=== PATIENT | female | born 1960 | race Caucasian/White ===

== ENCOUNTER → 2020-07-13 11:17 | Outpatient (CLI) | payer OTHER, SELFPAY ==
[2020-07-13] MEDS: COVID-19 VACC #1, MRNA(MOD) 100 MCG/0.5 ML VIAL IM (11:25)
== END ==
PROVIDERS: Visit Provider Internal Medicine
DX: Z23 Encounter for immunization (principal)
CPT/HCPCS: 0011A; 91301

== ENCOUNTER → 2020-08-10 11:04 | Outpatient (CLI) | payer OTHER, SELFPAY ==
[2020-08-10] MEDS: COVID-19 VACC #2, MRNA(MOD) 100 MCG/0.5 ML VIAL IM (11:09)
== END ==
PROVIDERS: Visit Provider Internal Medicine
DX: Z23 Encounter for immunization (principal)
CPT/HCPCS: 0012A; 91301

== ENCOUNTER → 2022-03-25 09:19 | Outpatient (CLI) | payer OTHER, SELFPAY ==
--- NOTE | 2022-03-25 09:23 | DI.RAD.S_ITS ---
PROCEDURE: XR HAND LT MIN 3V INDICATIONS: Dog bite TECHNIQUE: 3 views of the hand(s) acquired. COMPARISON: None. FINDINGS: Bones: No fractures or dislocations. Carpal bones are normally aligned. No suspicious bony lesions. Soft tissues: No suspicious soft tissue calcifications. IMPRESSION: No fracture or radiopaque foreign body. Dictated by: Saad Akers M.D. on 03/25/2022 at 15:37 Approved by: Saad Akers M.D. on 03/25/2022 at 15:38
--- NOTE | 2022-03-25 09:23 | DI.RAD.S_ITS ---
PROCEDURE: XR HAND RT MIN 3V INDICATIONS: Dog bite TECHNIQUE: 3 views of the hand(s) acquired. COMPARISON: [facility], CR, XR HAND LT MIN 3V, 03/25/2022, 9:35. FINDINGS: Nondisplaced fracture of the right 1st distal phalanx oriented obliquely through the proximal metadiaphysis. Remaining bones intact. No radiopaque foreign body. IMPRESSION: Nondisplaced right 1st distal phalanx fracture. Dictated by: Saad Akers M.D. on 03/25/2022 at 15:38 Approved by: Saad Akers M.D. on 03/25/2022 at 15:42
== END ==
PROVIDERS: Referring Provider Nurse Practitioner Family; Visit Provider Nurse Practitioner Family
DX: S62.524A Nondisplaced fracture of distal phalanx of right thumb, initial encounter for closed fracture (principal); M79.645 Pain in left finger(s); M79.644 Pain in right finger(s); W54.0XXA Bitten by dog, initial encounter
CPT/HCPCS: 73130

== ENCOUNTER 2022-05-11 09:30 | Emergency (ER) | payer OTHER, SELFPAY ==
[2022-05-11 09:40] VITALS: BP 135/89; PULSE 98; RESP 14; TEMP 36.3; O2SAT 99
[2022-05-11 10:17] LABS: Add Manual Diff / Slide Review NO; Basophils Absolute Auto 0 /uL (0-100); Basophils Percent Auto 0.6 % (0-2); Eosinophils Absolute Auto 0 /uL (0-450); Eosinophils Percent Auto 0.3 % (2-4); Hematocrit 42.2 % (36-46); Hemoglobin 14.2 g/dL (12.0-16.0); Lymphocytes Absolute Auto 1200 /uL (1100-4500); Lymphocytes Percent Auto 22.1 % (25-40); Mean Corpuscular HGB Conc 33.7 % (30-36); Mean Corpuscular Volume 94.9 fL (80-100); Monocytes Absolute Auto 500 /uL (0-900); Monocytes Percent Auto 9.5 % (3-14); Neutrophils Absolute Auto 3500 /uL (1500-7000); Neutrophils Percent Auto 67.5 % (50-75); Platelet Count 175 X10^3/uL (150-400); Red Blood Cell Count 4.45 X10^6/uL (4.0-5.2); Red Cell Distribution Width 13.1 % (11.6-14.8); White Blood Cell Count 5.2 X10^3/uL (4.5-11.0)
[2022-05-11 10:25] LABS: Alanine Aminotransferase 23 IU/L (<35); Albumin 4.5 g/dL (3.5-5.0); Albumin Globulin Ratio 1.5 (1.0-2.8); Alkaline Phosphatase 74 U/L (38-126); Aspartate Aminotransferase 39 IU/L (14-36); BUN Creatinine Ratio 24.2 (6-22); Bilirubin Total 0.9 mg/dL (0.2-1.3); Blood Urea Nitrogen 16 mg/dL (7-17); Calcium 9.2 mg/dL (8.4-10.2); Carbon Dioxide 28 mmol/L (22-32); Chloride 98 mmol/L (98-107); Estimated Glomerular Filt Rate > 60 mL/min (>60); Globulin 3.1 g/dL (1.7-4.1); Glucose 114 mg/dL (80-110); Lipase 132 U/L (23-300); Potassium 3.7 mmol/L (3.4-5.1); Sodium 137 mmol/L (137-145); Total Protein 7.6 g/dL (6.3-8.2)
[2022-05-11 10:27] LABS: HEMOLYSIS 52 (0-50)
--- NOTE | 2022-05-11 10:31 | ED_ITS ---
HPI - Abdominal Pain General Chief Complaint: Abdominal Pain Stated Complaint: abd pain Time Seen by Provider: 05/11/22 10:01 Source: patient Mode of arrival: Ambulatory History of Present Illness HPI narrative: Patient is a 61-year-old healthy female who presents with right lower quadrant pain ongoing for the last 4 days. It has been off and on coming and going in waves. She is felt nauseous at times but still able to eat. She was able to walk without any difficulty. She denies any fever or chills. No night sweats or weight loss. No cough or chest pain or palpitations. Related Data Previous Rx's Medication Instructions Recorded hydrocodone 5 mg-acetaminophen 325 1 tab PO Q6H PRN pain #10 tabs 05/11/22 mg tablet ondansetron 4 mg disintegrating 4 mg PO Q8H PRN nausea and 05/11/22 tablet vomiting #10 tabs Allergies Allergy/AdvReac Type Severity Reaction Status Date / Time No Known Drug Allergies Allergy Verified 05/11/22 09:51 Review of Systems Review of Systems ROS Unobtainable: All systems reviewed & are unremarkable except as noted in HPI and below Patient History Social History Smoking Status: Never smoker Smoking Status: Never smoker alcohol intake frequency: 0-2 drinks per day Substance Use Type: does not use Exam Initial Vital Signs Initial Vital Signs: Vital Signs Temperature 97.4 F L 05/11/22 09:40 Pulse Rate 98 H 05/11/22 09:40 Respiratory Rate 14 05/11/22 09:40 Blood Pressure 135/89 05/11/22 09:40 Pulse Oximetry 99 05/11/22 09:40 Oxygen Delivery Method 05/11/22 09:40 GENERAL: Alert pleasant 61-year-old female and in no acute distress. HEENT: Head atraumatic,EOMI, pupils reactive, face symmetric, moist mucous membranes CARDIOVASCULAR: Regular rate and rhythm without murmurs, rubs or gallops. RESPIRATORY: Breath sounds equal bilaterally, no wheezes rales or rhonchi. ABDOMEN: Soft tender in right lower quadrant without guarding or rebound no distention : No CVA tenderness EXTREMITIES: Normal range of motion, no clubbing or edema. Neurovascularly intact NEUROLOGICAL: Alert and oriented x4.Normal gait and speech. SKIN: Warm, dry, no laceration, no petechiae, no rashes or lesions. Course Orders Ordered: ED Orders 05/11/22 10:37 CT abdomen pelvis w con Stat 05/11/22 12:23 US pelvic complete Stat 05/11/22 15:15 Alpha Fetoprotein Stat Discontinued Medications Ketorolac Tromethamine (Ketorolac 30 Mg/Ml Vial) 15 mg IV NOW ONE Stop: 05/11/22 14:18 Last Admin: 05/11/22 14:53 Dose: 15 mg Documented By: JOSE Ondansetron HCl (Ondansetron 4 Mg/2 Ml Inj) 4 mg IV NOW PRN PRN Reason: Nausea And Vomiting Vital Signs Vital signs: Vital Signs - 8 hr 05/11/22 14:57 05/11/22 14:59 05/11/22 14:59 Pulse Rate 93 H 68 Blood Pressure 136/79 Pulse Oximetry 100 100 05/11/22 15:00 Pulse Rate 62 Blood Pressure Pulse Oximetry 100 MDM - Abdominal Pain Lab Data 05/11/22 10:05 05/11/22 10:05 Labs: Lab Results 05/11/22 05/11/22 05/11/22 Range/Units 10:05 10:05 10:05 WBC 5.2 (4.5-11.0) X10^3/uL RBC 4.45 (4.0-5.2) X10^6/uL Hgb 14.2 (12.0-16.0) g/dL Hct 42.2 (36-46) % MCV 94.9 (80-100) fL MCH 32.0 (26-34) PG MCHC 33.7 (30-36) % RDW 13.1 (11.6-14.8) % Plt Count 175 (150-400) X10^3/uL Neut % (Auto) 67.5 (50-75) % Lymph % (Auto) 22.1 L (25-40) % [place] % (Auto) 9.5 (3-14) % Eos % (Auto) 0.3 L (2-4) % Baso % (Auto) 0.6 (0-2) % Neut # (Auto) 3500 (4076-3805) /uL Lymph # (Auto) 1200 (6789-1756) /uL [place] # (Auto) 500 (0-900) /uL Eos # (Auto) 0 (0-450) /uL Baso # (Auto) 0 (0-100) /uL Sodium 137 (137-145) mmol/L Potassium 3.7 (3.4-5.1) mmol/L Chloride 98 (98-107) mmol/L Carbon Dioxide 28 (22-32) mmol/L BUN 16 (7-17) mg/dL Creatinine 0.66 (0.52-1.04) mg/dL Estimated GFR > 60 (>60) mL/min BUN/Creatinine Ratio 24.2 H (6-22) Glucose 114 H (80-110) mg/dL Lactate (0.7-2.1) mmol/L Calcium 9.2 (8.4-10.2) mg/dL Total Bilirubin 0.9 (0.2-1.3) mg/dL AST 39 H (14-36) IU/L ALT 23 (<35) IU/L Alkaline Phosphatase 74 (38-126) U/L Lactate Dehydrogenase (120-246) U/L Total Protein 7.6 (6.3-8.2) g/dL Albumin 4.5 (3.5-5.0) g/dL Globulin 3.1 (1.7-4.1) g/dL Albumin/Globulin Ratio 1.5 (1.0-2.8) Lipase 132 (23-300) U/L Carcinoembryonic Ag (0.1-3.0) ng/mL CA 125 Antigen (0-35) U/mL SARS-CoV-2 (PCR) Negative (Negative) 05/11/22 05/11/22 Range/Units 10:05 10:05 WBC (4.5-11.0) X10^3/uL RBC (4.0-5.2) X10^6/uL Hgb (12.0-16.0) g/dL Hct (36-46) % MCV (80-100) fL MCH (26-34) PG MCHC (30-36) % RDW (11.6-14.8) % Plt Count (150-400) X10^3/uL Neut % (Auto) (50-75) % Lymph % (Auto) (25-40) % [place] % (Auto) (3-14) % Eos % (Auto) (2-4) % Baso % (Auto) (0-2) % Neut # (Auto) (5743-1236) /uL Lymph # (Auto) (6434-7359) /uL [place] # (Auto) (0-900) /uL Eos # (Auto) (0-450) /uL Baso # (Auto) (0-100) /uL Sodium (137-145) mmol/L Potassium (3.4-5.1) mmol/L Chloride (98-107) mmol/L Carbon Dioxide (22-32) mmol/L BUN (7-17) mg/dL Creatinine (0.52-1.04) mg/dL Estimated GFR (>60) mL/min BUN/Creatinine Ratio (6-22) Glucose (80-110) mg/dL Lactate 1.6 (0.7-2.1) mmol/L Calcium (8.4-10.2) mg/dL Total Bilirubin (0.2-1.3) mg/dL AST (14-36) IU/L ALT (<35) IU/L Alkaline Phosphatase (38-126) U/L Lactate Dehydrogenase 225 (120-246) U/L Total Protein (6.3-8.2) g/dL Albumin (3.5-5.0) g/dL Globulin (1.7-4.1) g/dL Albumin/Globulin Ratio (1.0-2.8) Lipase (23-300) U/L Carcinoembryonic Ag 10.2 H (0.1-3.0) ng/mL CA 125 Antigen 13.0 (0-35) U/mL SARS-CoV-2 (PCR) (Negative) Point of care testing: Urine Dip Bedside Urine Glucose Negative Bedside Urine Bilirubin - Negative Bedside Urine Ketone - Negative Urine Specific [place] 1.005 Bedside Urine Occult Blood - Negative Bedside Urine pH 8.5 Bedside Urine Protein - Negative Bedside Urine Urobilinogen - Negative Bedside Urine Nitrite - Negative Bedside Urine Leukocytes - Negative Esterase Imaging Data CT scan - abdomen/pelvis: Radiologist's Impression: ?Sera Stern MR#: [id number] : 1960 Acct:[id number] Age/Sex: 61 / F Date of Service: 05/11/22 Loc: ED Accession Number: [id number] ?? Procedure: CT abdomen pelvis w con Ordering Provider: Billie Lipscomb D.O. ADDENDUMThis report includes an Addendum and supersedes previous reports for this exam. ? ? ? PROCEDURE:? CT ABDOMEN PELVIS W CON ? INDICATIONS:? rlq pain ? TECHNIQUE:? After the administration of oral and IV contrast, axial sections were acquired from the lung bases to the pubic symphysis.? Coronal and sagittal reformats were performed.? For radiation dose reduction, the following was used:? automated exposure control, adjustment of mA and/or kV according to patient size. ? COMPARISON:? None. ? FINDINGS:? Image quality:? Excellent.? ? Lung bases:? Unremarkable.? ? Heart:? No significant findings. ? ? ABDOMEN: Liver:? Unremarkable.? ? Gallbladder:? Unremarkable.? ? Biliary ducts:? Unremarkable.? ? Pancreas:? Unremarkable.? ? Spleen:? Unremarkable.? ? Adrenal Glands:? Unremarkable.? ? Kidneys and Ureters:? Note is made that the right kidney is low lying.? The kidneys demonstrate normal size and enhance symmetrically.? There is no hydronephrosis.? ? Stomach and Bowel: In this patient with this given history, scrutiny is given to the appendix.? A normal appendix is partially seen, as on series 4, image 17 and on series 2, image 54. There is a moderate amount of stool seen within the colon.? New line no dilated loops of small bowel are seen. The stomach is relatively decompressed, which limits its evaluation. Peritoneum:? A moderate amount of simple ascites is seen in the right lower quadrant.? No free air is seen. ? Ventral Wall: ? No hernia.? Abdominal Nodes:? No retroperitoneal or mesenteric adenopathy by size criteria.? Vessels:? Aorta and inferior vena cava are normal in size.? ? PELVIS: Pelvic Organs:? Unremarkable.? ? Bladder:? Unremarkable.? ? Pelvic Nodes: No enlarged lymph nodes.? Miscellaneous: No inguinal hernias are seen. ? ? ? Bones:? Focal L2-L3 degenerative change is seen.? Milder degenerative changes are seen elsewhere.? ? ? IMPRESSION:? ? A normal appendix is partially seen. ? There is a moderate amount of simple appearing ascites seen within the right lower quadrant of the abdomen.? A cause of this localized fluid is not seen, however.? No rim enhancement is seen to suggest peritoneal abscess. ? There is a moderate amount of stool seen within the colon. Please correlate with an underlying history of constipation.? ? ? Additional findings:? Low lying right kidney ? Dictated by: Joshua Drake M.D. on 05/11/2022 at 10:19 ? ? Approved by: Joshua Drake M.D. on 05/11/2022 at 10:31 ? ? ? ADDENDUM: ? This patient has localized right lower quadrant fluid, which the does not have a clear explanation.? Differential diagnosis includes ruptured appendicitis. ? Close clinical follow-up is suggested.? If clinically appropriate, please consider a repeat CT, performed with IV and oral contrast. ? ? Note: Case discussed by telephone with Dr. Lipscomb at 10:55 a.m. [place] time on May 11, 2022.? Dictated by: Joshua Drkae M.D. on 05/11/2022 at 11:00 ? ? Approved by: Joshua Drake M.D. on 05/11/2022 at 11:02 ? Addendum Dictated By: Joshua Drake MD Addendum Signed By: Addendum Cosigned By: DD/ TD/TT: 05/11/22 PROCEDURE:? CT ABDOMEN PELVIS W CON ? INDICATIONS:? rlq pain ? TECHNIQUE:? After the administration of oral and IV contrast, axial sections were acquired from the lung bases to the pubic symphysis.? Coronal and sagittal reformats were performed.? For radiation dose reduction, the following was used:? automated exposure control, adjustment of mA and/or kV according to patient size. ? COMPARISON:? None. ? FINDINGS:? Image quality:? Excellent.? ? Lung bases:? Unremarkable.? ? Heart:? No significant findings. ? ? ABDOMEN: Liver:? Unremarkable.? ? Gallbladder:? Unremarkable.? ? Biliary ducts:? Unremarkable.? ? Pancreas:? Unremarkable.? ? Spleen:? Unremarkable.? ? Adrenal Glands:? Unremarkable.? ? Kidneys and Ureters:? Note is made that the right kidney is low lying.? The kidneys demonstrate normal size and enhance symmetrically.? There is no hydronephrosis.? ? Stomach and Bowel: In this patient with this given history, scrutiny is given to the appendix.? A normal appendix is partially seen, as on series 4, image 17 and on series 2, image 54. There is a moderate amount of stool seen within the colon.? New line no dilated loops of small bowel are seen. The stomach is relatively decompressed, which limits its evaluation. Peritoneum:? A moderate amount of simple ascites is seen in the right lower quadrant.? No free air is seen. ? Ventral Wall: ? No hernia.? Abdominal Nodes:? No retroperitoneal or mesenteric adenopathy by size criteria.? Vessels:? Aorta and inferior vena cava are normal in size.? ? PELVIS: Pelvic Organs:? Unremarkable.? ? Bladder:? Unremarkable.? ? Pelvic Nodes: No enlarged lymph nodes.? Miscellaneous: No inguinal hernias are seen. ? ? ? Bones:? Focal L2-L3 degenerative change is seen.? Milder degenerative changes are seen elsewhere.? ? ? IMPRESSION:? ? A normal appendix is partially seen. ? There is a moderate amount of simple appearing ascites seen within the right lower quadrant of the abdomen.? A cause of this localized fluid is not seen, however.? No rim enhancement is seen to suggest peritoneal abscess. ? There is a moderate amount of stool seen within the colon. Please correlate with an underlying history of constipation.? ? ? Additional findings:? Low lying right kidney ? Dictated by: Joshua Drake M.D. on 05/11/2022 at 10:19 ? ? Approved by: Joshua Drake M.D. on 05/11/2022 at 10: US - RUG INSPECTOR HELPER: Radiologist's Impression: Signed Patient: Sera Stern MR#: [id number] : 1960 Acct:[id number] Age/Sex: 61 / F Date of Service: 05/11/22 Loc: ED Accession Number: [id number] ?? Procedure: US pelvic complete Ordering Provider: Billie Lipscomb D.O. PROCEDURE:? US PELVIC COMPLETE ? INDICATIONS:? RIGHT PELVIC FREE FLUID ON CT ? TECHNIQUE:? Real-time scanning was performed of the pelvic organs, with image documentation.? Additional endovaginal scanning was necessary due to incomplete visualization of the adnexal and endometrial structures by transabdominal scanning.? ? COMPARISON:? [facility], CT, CT ABDOMEN PELVIS W CON, 05/11/2022, 10:56. ? FINDINGS:? ?? Uterus:? Uterus is anteverted and normal in size at 5.2 x 2.4 x 4.3 cm. The myom etrium is homogeneous. ? The endometrium measures 2 mm combined thickness.? There is a 1 x 0.4 x 1 cm heterogeneous solid mass seen along the endometrial stripe, with minimal internal vascularity seen. ? Ovaries:? The right ovary measures 3.8 x 2.8 x 4.4 cm, with a calculated ovarian volume of 24.2 cc.? Within the right ovary, there are 3 simple appearing cysts seen, with the largest measuring up to 3.4 cm. Normal appearing arterial waveforms are confirmed to the right ovary.? ? The left ovary measures 0.7 x 1.6 x 0.9 cm, with a calculated ovarian volume of 0.5 cc. ? Less than 12 follicles can be seen in each ovary.? No adnexal masses are seen. ? Other:? There is a moderate amount of free seen, with low level echoes, it both inferior and superior to the right ovary. ? ? IMPRESSION:? Moderate free fluid can be seen within the right lower quadrant, with low level echoes, which may be related to blood. ? The right ovary demonstrates several cysts, including a 3.4 cm cyst.? Although no suspicious features are seen, please consider ovarian neoplasm in this postmenopausal patient. ? Negative for right ovarian torsion. ? Along the endometrial stripe, there is a new finding of a 1 cm likely polyp seen.? Please consider hysteroscopy versus sonohysterogram for further evaluation. ? ? We strive to produce accurate, complete, and clear reports of imaging services. To assist us in improving patient care, this report was composed using standard report templates and voice recognition software. Therefore, it may contain abnormal punctuation, insertions and/or omissions. Occasional wrong-word or sound-alike substitutions may occur. Though we review the report and make efforts to correct it, we do recommend that the report be read carefully in proper context to recognize any text inaccur acies. ? ? Dictated by: Joshua Drake M.D. on 05/11/2022 at 12:30 ? ? ECG Data Interpretation: Normal sinus rhythm rate 75 IA interval 108 QRS [address] changes or T- wave inversions MDM Narrative Medical decision making narrative: Patient is a healthy 61-year-old female who presents with right lower quadrant pain ongoing for the last 3-4 days waxing and waning. Blood work is overall reassuring without leukocytosis or lactic acidosis. CT does show right lower quadrant fluid without obvious appendicitis rupture of appendicitis although that can not be excluded and no masses. Pelvic ultrasound does show several ovarian cysts, possible neoplasm. I did discuss with Dr. Garcia in regards to CT findings and ultrasound findings. At this time there is nothing surgical. Dr. Frias environmental restoration planner updated patient's symptoms test results recommend tumor markers and follow-up as an outpatient next week. Patient and updated patient's test results in concern for cancer. She does not have a PCP. Expect to hear call back from Dr. Frias's office. Discharge Plan Departure Patient Disposition: Home Clinical Impression: Ovarian cyst Instructions: DI for Ovarian Cancer, DI for Ovarian Cyst Activity Restrictions/Additional Instructions: *You have been diagnosed with pelvic fluid, possible ovarian cyst versus ovarian cancer *What to do: At this time you need further workup concern is for ovarian cancer. Dr. Frias OBGYN has been consulted his office should call you on Friday schedule follow-up appointment. *Continue to take medications as directed Ibuprofen 600 mg every 6 hours if needed for [id number] Tylenol 650 mg every 4-6 hours if needed for [id number] pain [place] 1 tablet every 6 hours or at nighttime if needed for severe pain--> SENT TO [facility] *Follow up with your primary care provider in 2-3 days or call [phone] Dr. Frias contact information below *Return to ER if you should have increasing pain despite pain medication, nausea vomiting fever or any new, worsening or concerning symptoms CONTROLLED SUBSTANCE DISCHARGE (Narcotoic/benzodiazepine/Flexeril/Phenergan) 1. You have been prescribed narcotic medications, it does have acetaminophen/Tylenol/paracetamol in it, DO NOT TAKE MORE THAN 4,00mg in 24 hours of Tylenol. TRAMADOL DOES NOT CONTAIN TYLENOL 2. Please understand that we cannot provide further refills of narcotics, benzodiazepines or controlled substances through the ED and her pain management will need to be through your provider. 3. While on these medications you cannot drive or operate heavy machinery. 4. You cannot sign legal documents or perform any duties such as this. 5. As long as you're taking opiate pain medications he should also be taking a stool softener such as Colace, Dulcolax, MiraLAX or prune juice, to help avoid constipation. Prescriptions: New hydrocodone-acetaminophen 5-325 mg tablet 1 tab PO Q6H PRN (Reason: pain) Qty: 10 0RF ondansetron 4 mg tablet,disintegrating 4 mg PO Q8H PRN (Reason: nausea and vomiting) Qty: 10 0RF Referrals: Miscellaneous,Doctor, [Primary Care Provider] - Levar Frias MD [Physician] - Stand Alone Forms: Patient Portal/API
--- NOTE | 2022-05-11 10:37 | DI.CT.S_ITS ---
PROCEDURE: CT ABDOMEN PELVIS W CON INDICATIONS: rlq pain TECHNIQUE: After the administration of oral and IV contrast, axial sections were acquired from the lung bases to the pubic symphysis. Coronal and sagittal reformats were performed. For radiation dose reduction, the following was used: automated exposure control, adjustment of mA and/or kV according to patient size. COMPARISON: None. FINDINGS: Image quality: Excellent. Lung bases: Unremarkable. Heart: No significant findings. ABDOMEN: Liver: Unremarkable. Gallbladder: Unremarkable. Biliary ducts: Unremarkable. Pancreas: Unremarkable. Spleen: Unremarkable. Adrenal Glands: Unremarkable. Kidneys and Ureters: Note is made that the right kidney is low lying. The kidneys demonstrate normal size and enhance symmetrically. There is no hydronephrosis. Stomach and Bowel: In this patient with this given history, scrutiny is given to the appendix. A normal appendix is partially seen, as on series 4, image 17 and on series 2, image 54. There is a moderate amount of stool seen within the colon. New line no dilated loops of small bowel are seen. The stomach is relatively decompressed, which limits its evaluation. Peritoneum: A moderate amount of simple ascites is seen in the right lower quadrant. No free air is seen. Ventral Wall: No hernia. Abdominal Nodes: No retroperitoneal or mesenteric adenopathy by size criteria. Vessels: Aorta and inferior vena cava are normal in size. PELVIS: Pelvic Organs: Unremarkable. Bladder: Unremarkable. Pelvic Nodes: No enlarged lymph nodes. Miscellaneous: No inguinal hernias are seen. Bones: Focal L2-L3 degenerative change is seen. Milder degenerative changes are seen elsewhere. IMPRESSION: A normal appendix is partially seen. There is a moderate amount of simple appearing ascites seen within the right lower quadrant of the abdomen. A cause of this localized fluid is not seen, however. No rim enhancement is seen to suggest peritoneal abscess. There is a moderate amount of stool seen within the colon. Please correlate with an underlying history of constipation. Additional findings: Low lying right kidney Dictated by: Joshua Drake M.D. on 05/11/2022 at 10:19 Approved by: Joshua Drake M.D. on 05/11/2022 at 10:31
[2022-05-11 10:51] LABS: COVID19 -Nasal RAPID Negative (Negative)
[2022-05-11 12:15] LABS: Lactate (Lactic Acid) 1.6 mmol/L (0.7-2.1)
--- NOTE | 2022-05-11 12:23 | DI.US.S_ITS ---
PROCEDURE: US PELVIC COMPLETE INDICATIONS: RIGHT PELVIC FREE FLUID ON CT TECHNIQUE: Real-time scanning was performed of the pelvic organs, with image documentation. Additional endovaginal scanning was necessary due to incomplete visualization of the adnexal and endometrial structures by transabdominal scanning. COMPARISON: [facility], CT, CT ABDOMEN PELVIS W CON, 05/11/2022, 10:56. FINDINGS: Uterus: Uterus is anteverted and normal in size at 5.2 x 2.4 x 4.3 cm. The myometrium is homogeneous. The endometrium measures 2 mm combined thickness. There is a 1 x 0.4 x 1 cm heterogeneous solid mass seen along the endometrial stripe, with minimal internal vascularity seen. Ovaries: The right ovary measures 3.8 x 2.8 x 4.4 cm, with a calculated ovarian volume of 24.2 cc. Within the right ovary, there are 3 simple appearing cysts seen, with the largest measuring up to 3.4 cm. Normal appearing arterial waveforms are confirmed to the right ovary. The left ovary measures 0.7 x 1.6 x 0.9 cm, with a calculated ovarian volume of 0.5 cc. Less than 12 follicles can be seen in each ovary. No adnexal masses are seen. Other: There is a moderate amount of free seen, with low level echoes, it both inferior and superior to the right ovary. IMPRESSION: Moderate free fluid can be seen within the right lower quadrant, with low level echoes, which may be related to blood. The right ovary demonstrates several cysts, including a 3.4 cm cyst. Although no suspicious features are seen, please consider ovarian neoplasm in this postmenopausal patient. Negative for right ovarian torsion. Along the endometrial stripe, there is a new finding of a 1 cm likely polyp seen. Please consider hysteroscopy versus sonohysterogram for further evaluation. We strive to produce accurate, complete, and clear reports of imaging services. To assist us in improving patient care, this report was composed using standard report templates and voice recognition software. Therefore, it may contain abnormal punctuation, insertions and/or omissions. Occasional wrong-word or sound-alike substitutions may occur. Though we review the report and make efforts to correct it, we do recommend that the report be read carefully in proper context to recognize any text inaccuracies. Dictated by: Joshua Drake M.D. on 05/11/2022 at 12:30 Approved by: Joshua Drake M.D. on 05/11/2022 at 12:34
[2022-05-11] MEDS: KETOROLAC 30 MG/ML VIAL 15 MG IV (14:53)
[2022-05-11 14:55] LABS: Lactate Dehydrogenase 225 U/L (120-246)
[2022-05-11 14:57] VITALS: PULSE 93; O2SAT 100
[2022-05-11 14:59] VITALS: BP 136/79; PULSE 68; O2SAT 100
[2022-05-11 15:00] VITALS: PULSE 62; O2SAT 100
[2022-05-11 15:27] LABS: Carcinoembryonic Antigen 10.2 ng/mL (0.1-3.0)
[2022-05-13 12:03] LABS: Alpha Fetoprotein 2.4 ng/mL (0.0-9.2)
[2022-05-15 11:43] LABS: Human Epididymis Prot 4 56.9 pmol/L (0.0-96.5)
[2022-05-15 12:29] LABS: Inhibin B <7.0 pg/mL (0.0-16.9)
== END 2022-05-11 15:22 | disposition home or self-care (01) ==
PROVIDERS: Emergency Provider Emergency Medicine
DX: N83.201 Unspecified ovarian cyst, right side (principal); Z20.822 Contact with and (suspected) exposure to COVID-19
CPT/HCPCS: 36415; 74177; 76830; 76856; 80053; 81003; 82105; 82378; 83520; 83605; 83615; 83690; 85025; 86304; 86305; 87635; 93005; 93976; 96374; 99284; C9803; J1885; Q9967

== ENCOUNTER 2022-08-01 11:51 | Day surgery (SDC) | payer OTHER, SELFPAY ==
[2022-08-01] VITALS (8 sets, daily range): BP systolic 104–146; BP diastolic 68–89; PULSE 54–64; RESP 12–16; TEMP 36.2–36.6; O2SAT 99–100; BMI 18.5
--- NOTE | 2022-08-01 | PATH_ITS ---
[facility] Accession Number: [id number] No. of containers..03 Tissue . 01 Material submitted: . PART A: ovary - RIGHT OVARY AND FALLOPIAN TUBE AND PARAOVARIAN CYST PART B: fallopian tube - LEFT FALLOPIAN TUBE PART C: endometrium - ENDOMETRIAL POLYP . 01 Diagnosis: A. Right Fallopian Tube and Ovary, Salpingo-oophorectomy: Fimbriated fallopian tube with benign paratubal cyst. Ovary with postmenopausal changes. Negative for neoplasia. . B. Left Fallopian Tube, Salpingectomy: Fimbriated fallopian tube without significant pathologic abnormality. Negative for neoplasia. . C. Endometrium, Biopsy: Polypoid atrophic endometrium with thermal artifact. Negative for neoplasia. [facility] 08/07/2022 1452 Local . 01 Electronically signed: . Geni Santos MD, Pathologist NPI- [id number] . 01 Gross description: . A. Received in formalin, labeled with the patient's name, , and right ovary, fallopian tube, and paraovarian cyst, and consists of a fimbriated fallopian tube measuring 7.2 cm in length by 1.0 cm in diameter with congested smooth serosa and is significant for a large, thin, smooth-walled cystic structure near the fimbriated end measuring 3.3 x 3.1 x 2.8 cm and is inked blue. Sectioning reveals a cyst containing clear serous fluid and has thin, smooth hernández with no excrescences identified. The fallopian tube has an unremarkable stellate lumen. The attached ovary is yellow and cerebriform, weighing 1 g and measuring 1.9 x 1.2 x 0.7 cm. Sectioning reveals an unremarkable, physiologic cut surface with no lesions or cysts identified. [employer] sections are submitted as follows: A1: Fallopian tube to include one-half of bisected fimbriae and cross sections. A2: [employer] Operator paratubal cyst. A3: [employer] System Operator ovary. B. Received in formalin, labeled with the patient's name, , and left fallopian tube, and consists of a fimbriated fallopian tube measuring 5.1 cm in length by 0.5 cm in diameter with thornton, smooth serosa and no cystic structures identified. Sectioning reveals an unremarkable stellate lumen. Page Make[employer] System Operator sections to include one-half of the bisected fimbriae and cross sections are submitted in cassette B1. C. Received in formalin, labeled with the patient's name, , and endometrial polyp, and consists of two thornton soft tissue fragments measuring 0.2 x 0.2 x 0.1 cm and 0.5 x 0.3 x 0.2 cm. The specimen is filtered into a biopsy bag and submitted intact in cassette C1. ([id number]) /[facility] 08/03/2022 1301 Local . 01 Pathologist provided ICD-10: N83.8 . 01 CPT . 590241, 594283, 088128 Specimen Comment: A courtesy copy of this report has been sent to [phone] Performed at: 01 [facility] [address] [place] [address], [place], [place] [id number] MD Rosendo Hope MD Phone: [phone]
--- NOTE | 2022-08-01 11:00 | SUR.OPER ---
Lithotomy on padded OR bed. [place] Pad Positioner under torso. Head on pillow, arms padded and tucked at sides. Legs secured in padded yellow fins stirrups.
[2022-08-01] MEDS: LACTATED RINGERS 1,000 ML 100 ML IV ×3 (12:23→15:15)
--- NOTE | 2022-08-01 13:32 | PM.PREOP ---
Pre-operative Note COVID-19 COVID-19 status: Not tested Criteria for continued procedure: Non-surgical alternatives not available or appropriate per current SOC Interval Note History & Physical reviewed/Exam performed by Physician: Yes Changes to H&P: No
--- NOTE | 2022-08-01 14:26 | SUR.OPER ---
Lithotomy on padded OR bed, head on pillow, arms secured on padded arm boards at <90 degrees abduction. Legs secured in padded yellow fins stirrups.
[2022-08-01] MEDS: BUPIVACAINE 0.5% (PF) 30 ML, EPINEPHrine 0.15 MG INJ (14:31)
--- NOTE | 2022-08-01 15:48 | PM.GYNOP.1 ---
Operative Date/Time/Diagnoses Date of procedure: 08/01/22 Time of procedure: 15:48 Pre-op diagnosis: Right lower quadrant pain Right ovarian cyst Endometrial mass Post-op diagnosis: same Procedure & Clinicians Procedure: Procedures Operation Date: 08/01/22 13:30 Actual Procedure Side Surgeon p Laparoscopic Right Salpingo-oophorectomywith left salpinectomy, Levar Frias MD s Hysteroscopy w/ resection of endometrial polyp Levar Frias MD Surgeon: Levar Frias Anesthesia Type: General Operative Notes Findings: Both ovaries appear normal. There is a paraovarian cyst adjacent to the right ovary but no other abnormalities are noted in the pelvis. The appendix is retrocecal and only partially visualized. The liver edge is normal and the gallbladder is not visualized. The endometrial cavity is unremarkable aside from a small endometrial polyp arising immediately superior to the internal cervical os on the posterior surface of the lower uterine segment. The endometrium is bland and unremarkable without localized abnormality. Specimen(s): endometrial polyp, left tube and right tube & ovary Estimated blood loss (mL): 10 Blood products transfused: none Procedure in detail: With the patient under satisfactory general anesthesia in the modified dorsal lithotomy position, the patient was prepped and draped for hysteroscopy/llaparoscopy. The umbilicus was infiltrated with 0.5% Marcaine with epinephrine and a 2 cm vertical umbilical incision was made. The anterior fascia was then incised transversely after grasping with Kaushal clamps. Stay sutures of 0 Vicryl replaced at each angle. The rectus abdominal were divided and entry into peritoneal cavity was accomplished with blunt dissection. The Gay cannula was then placed and stay sutures used to secured in place. The abdomen was insufflated with carbon dioxide and the at abdominal viscera visualized laparoscopically. A 2nd and 3rd laparoscopic ports using 5 mm bladeless trocars w/ sleeves were placed after infiltration of the skin and subcutaneous tissues w/ 0.5% lidocaine with epinephrine. Using a 3 puncture technique, the abdomen and pelvis were thoroughly examined and photographically documented. A grasping forceps was used to elevate the distal tube on the right side and the infundibulopelvic ligament was coagulated and divided with a power Seal bipolar device. The dissection was then carried along the mesosalpinx to the cornua where the proximal tube was transected with the power Seal device. Attention was then turned to the left adnexa and the left ovary was seen to be completely normal therefore was left in-situ per patient request. The distal tube was grasped and elevated. A variceal device was then used to coagulate and divide the fimbria of Zoey and the dissection was carried across the mesosalpinx to the cornua where the proximal tube was amputated. An Endo-Catch was used to deliver the right adnexa and left fallopian tube into the umbilical incision and the specimen easily removed through that port. The pelvis was reinspected and again photographically documented. A pneumoperitoneum was then vented and the laparoscopic incisions were closed with 4-0 Monocryl on the skin and 0 Vicryl interrupted on the fascia of the umbilical incision. Skin glue was applied and appropriate dressings placed. Attention was then turned to the hysteroscopic portion of the case. A small Rand speculum was placed in the vagina and the cervix easily visualized. The anterior lip of the cervix was then grasped with a single-tooth tenaculum and the endocervical canal dilated to 7 mm. A hysteroscope using sterile saline as distention meeting was placed through the endocervical canal into the endometrial cavity with the findings as noted previously. The hysteroscope was replaced with the resectoscope and using sorbitol as a distention medium, the polyp on the posterior aspect of the lower uterine segment was resected with small fragments obtained and submitted as pathologic specimens. Because the endometrium was completely bland and the endometrial cavity visibly normal, no curettage was felt to be warranted. The single-tooth tenaculum was then removed from the anterior lip of the cervix and there was no significant bleeding noted. Speculum was then removed from the vagina and the operation terminated by awakening the patient and transfer to the PACU after tolerating the procedure well. Complications: none Post-operative Condition: stable Disposition: PACU Plan for aftercare: Routine postoperative care.
[2022-08-01] MEDS: HYDROCODONE/ACET 5/325 TABLET 1 TAB PO (16:19)
== END 2022-08-01 16:54 | disposition home or self-care (01) ==
PROVIDERS: PCP Registered Nurse; Referring Provider Obstetrics & Gynecology; Visit Provider Obstetrics & Gynecology
PROC: (CPT 58661; principal; 2022-08-01 13:30)
PROC: 0UDB8ZZ Extraction of Endometrium, Via Natural or Artificial Opening Endoscopic (ICD-10-PCS; CPT 58558; 2022-08-01 13:30)
DX: R10.31 Right lower quadrant pain (principal); N83.201 Unspecified ovarian cyst, right side; N83.8 Other noninflammatory disorders of ovary, fallopian tube and broad ligament; N84.0 Polyp of corpus uteri
CPT/HCPCS: 58661; 58558; J0171; J1100; J1885; J2250; J2405; J2704; J3010

== ENCOUNTER 2023-03-26 09:38 | Observation (INO) | payer OTHER, SELFPAY ==
[2023-03-26] VITALS (17 sets, daily range): BP systolic 101–185; BP diastolic 63–91; PULSE 65–81; RESP 15–18; TEMP 37.2; O2SAT 94–100; BMI 19.0
[2023-03-26 10:14] LABS: Add Manual Diff / Slide Review NO; Basophils Absolute Auto 0 /uL (0-100); Basophils Percent Auto 0.4 % (0-2); Eosinophils Absolute Auto 0 /uL (0-450); Eosinophils Percent Auto 0.2 % (2-4); Hematocrit 40.7 % (36-46); Hemoglobin 13.8 g/dL (12.0-16.0); Lymphocytes Absolute Auto 1000 /uL (1100-4500); Lymphocytes Percent Auto 11.5 % (25-40); Mean Corpuscular HGB Conc 33.9 % (30-36); Mean Corpuscular Hemoglobin 32.3 PG (26-34); Mean Corpuscular Volume 95.4 fL (80-100); Monocytes Absolute Auto 700 /uL (0-900); Monocytes Percent Auto 7.9 % (3-14); Neutrophils Absolute Auto 6800 /uL (1500-7000); Platelet Count 193 X10^3/uL (150-400); Red Blood Cell Count 4.27 X10^6/uL (4.0-5.2); Red Cell Distribution Width 12.6 % (11.6-14.8); White Blood Cell Count 8.6 X10^3/uL (4.5-11.0)
[2023-03-26 10:16] LABS: Alanine Aminotransferase 27 IU/L (<35); Albumin 4.5 g/dL (3.5-5.0); Albumin Globulin Ratio 1.3 (1.0-2.8); Alkaline Phosphatase 80 U/L (38-126); Aspartate Aminotransferase 44 IU/L (14-36); BUN Creatinine Ratio 21.3 (6-22); Bilirubin Total 0.8 mg/dL (0.2-1.3); Blood Urea Nitrogen 13 mg/dL (7-17); Calcium 9.7 mg/dL (8.4-10.2); Carbon Dioxide 26 mmol/L (22-32); Chloride 101 mmol/L (98-107); Estimated Glomerular Filt Rate > 60 mL/min (>60); Globulin 3.5 g/dL (1.7-4.1); Glucose 117 mg/dL (80-110); HEMOLYSIS < 15 (0-50); Lipase 133 U/L (23-300); Potassium 3.7 mmol/L (3.4-5.1); Sodium 134 mmol/L (137-145)
[2023-03-26 10:22] LABS: Mucus Urine 1+ (Negative); RBC Urine 0-1/HPF (0-5/HPF); Squamous Epithelial Cell Urine 0-1 /HPF (0-5/HPF); WBC Urine None Seen (0-5/HPF)
[2023-03-26 10:23] LABS: Bacteria Urine Occasional (0-1); Culture Indicated Urine Specimen Cultured
--- NOTE | 2023-03-26 17:20 | ED_ITS ---
HPI - General Adult <Rona Gandhi MD - Last Filed: 03/30/23 01:05> General Chief complaint: Abdominal Pain Stated complaint: pain in lower right abd t-2 Time Seen by Provider: 03/26/23 13:46 Source: patient Mode of arrival: Ambulatory History of Present Illness HPI narrative: 62-year-old woman presents with 48 hours of right lower quadrant pain that was significant enough that she had difficulty sleeping all night. She describes it as starting in the mid abdomen and eventually localizing to the right lower quadrant. She is had an extended wait in the emergency department and notes that over the day today the pain has lessened. She describes it as a 9/10 early this morning and is down to a 3 to 4/10 not requiring pain medications at this time. She had similar pain back in April of this year was found to have an ovarian cyst with concerns for ovarian cancer. The right ovary ribs removed she was found to be cancer free. Her CEA was elevated the time she is since had a colonoscopy and upper endoscopy with no evidence of neoplastic abnormality. She does still have her left ovary in place. She notes no vaginal discharge. She is been nauseated but not vomiting. Feels that her stools are normal and notes that she typically has fairly loose stools due to the large volume of fiber that she eats on a regular basis. She is had no chest pain, fevers, cough, dyspnea, palpitations, headaches Related Data Previous Rx's Medication Instructions Recorded oxycodone 5 mg tablet 5 mg PO Q6H PRN pain #10 tabs 03/28/23 Allergies Allergy/AdvReac Type Severity Reaction Status Date / Time No Known Drug Allergies Allergy Verified 03/26/23 09:54 Review of Systems <Rona Gandhi MD - Last Filed: 03/30/23 01:05> Review of Systems Narrative: Pertinent positive and negative findings as per HPI Patient History <Rona Gandhi MD - Last Filed: 03/30/23 01:05> Medical History Hypertension Surgical History History of right oophorectomy Family History Father History of heart disease Circulatory disease Mother Neurologic disorder Grandfather History of heart disease Grandmother Stroke Grandfather Cancer Grandmother Cancer Social History household members: none Smoking Status: Never smoker alcohol intake: never Smoking Status: Never smoker alcohol intake frequency: holidays/special occasions only Substance Use Type: does not use Exam <Rona Gandhi MD - Last Filed: 03/30/23 01:05> Initial Vital Signs Initial Vital Signs: Vital Signs Temperature 98.9 F 03/26/23 09:40 Pulse Rate 78 03/26/23 09:40 Respiratory Rate 15 03/26/23 09:40 Blood Pressure 185/91 H 03/26/23 09:40 Pulse Oximetry 99 03/26/23 09:40 Oxygen Delivery Method Room Air 03/26/23 09:40 General: Healthy appearing, in no acute distress. Able to give a complete and coherent history. Well-nourished well-developed HEENT: Moist mucous membranes, normal sclera with reactive pupils, Respiratory: Lungs are clear to auscultation, no wheezing no rales no rhonchi. Full and symmetrical air movement Cardiac: Regular rate and rhythm no murmurs no bruits Abdomen: Soft, she is difficulty going from sitting to standing and when she is walking she is more comfortable hunched forward with a shuffling gait. She has mild right lower quadrant tenderness without rebound or guarding and no flank pain. Skin: Warm and dry, no rashes Neurologic: Grossly neurologically intact with no obvious asymmetries or abnormalities Extremities: No trauma, well perfused Psych: Cooperative, appropriate insight and affect <French Brizuela DO - Last Filed: 03/27/23 00:13> Initial Vital Signs Initial Vital Signs: Vital Signs Temperature 98.9 F 03/26/23 09:40 Pulse Rate 78 03/26/23 09:40 Respiratory Rate 15 03/26/23 09:40 Blood Pressure 185/91 H 03/26/23 09:40 Pulse Oximetry 99 03/26/23 09:40 Oxygen Delivery Method Room Air 03/26/23 09:40 Course <Rona Gandhi MD - Last Filed: 03/30/23 01:05> Orders Ordered: Discontinued Medications Acetaminophen (Acetaminophen 325 Mg Tablet) 975 mg PO NOW ONE Stop: 03/27/23 16:44 Last Admin: 03/27/23 18:41 Dose: Not Given Documented By: ARPIT Hydrocodone Bitart/Acetaminophen (Hydrocodone/Acet 5/325 Tablet) 1 tab PO Q4HR PRN PRN Reason: Pain, Moderate (4-6) Celecoxib (Celecoxib 200 Mg Capsule) 200 mg PO BID [facility] Last Admin: 03/28/23 08:34 Dose: Not Given Documented By: Admin: 03/27/23 20:36 Dose: 200 mg Documented By: Bupivacaine HCl 30 ml/ (Epinephrine HCl 0.15 mg) 0 ml INJ NOW ONE Stop: 03/27/23 17:09 Last Admin: 03/27/23 17:08 Dose: 20 ml Documented By: ZENA Hydromorphone HCl (Hydromorphone 1 Mg Inj) 0 mg IV Q5MIN PRN PRN Reason: Pain, Mild (1-3) Hydromorphone HCl (Hydromorphone 1 Mg Inj) 0 mg IV Q5MIN PRN PRN Reason: Pain, Moderate (4-6) Piperacillin Sod/Tazobactam (Sod 3.375 gm/ Sodium Chloride) 100 mls @ 25 mls/hr IV Q8H [facility] Last Admin: 03/27/23 12:40 Dose: 25 mls/hr Documented By: Infusion: 03/27/23 09:30 Dose: Infused Documented By: Admin: 03/27/23 04:37 Dose: 25 mls/hr Documented By: Infusion: 03/27/23 00:51 Dose: Infused Documented By: Infusion: 03/26/23 21:07 Dose: 25 mls/hr Documented By: DKShailesh Admin: 03/26/23 20:50 Dose: 25 mls/hr Documented By: DKShailesh Sodium Chloride (Normal Saline 0.9%) 1,000 mls @ 100 mls/hr IV CONT [facility] Last Infusion: 03/27/23 18:32 Dose: 100 mls/hr Documented By: Infusion: 03/27/23 15:45 Dose: 0 mls/hr Documented By: Admin: 03/27/23 09:00 Dose: 100 mls/hr Documented By: Infusion: 03/27/23 09:00 Dose: Infused Documented By: Admin: 03/26/23 22:28 Dose: 100 mls/hr Documented By: SR Lactated Ringer's (Lactated Ringers) 1,000 mls @ 42 mls/hr IV NOW ONE Stop: 03/28/23 15:50 Last Infusion: 03/27/23 17:43 Dose: Infused Documented By: Admin: 03/27/23 16:03 Dose: 42 mls/hr Documented By: TC Acetaminophen (Ofirmev) 1,000 mg in 100 mls @ 400 mls/hr IV NOW ONE Stop: 03/27/23 17:23 Last Admin: 03/27/23 16:50 Dose: 400 mls/hr Documented By: AB Lorazepam (Lorazepam 2 Mg/Ml Inj) 0.25 mg IV NOW PRN PRN Reason: Anxiety Morphine Sulfate (Morphine 2 Mg/Ml Inj) 4 mg IV Q4HR PRN PRN Reason: Pain, Mild (1-3) Last Admin: 03/27/23 02:31 Dose: 4 mg Documented By: SR Ondansetron HCl (Ondansetron 4 Mg/2 Ml Inj) 4 mg IV NOW PRN PRN Reason: Nausea And Vomiting Ondansetron HCl (Ondansetron 4 Mg/2 Ml Inj) 4 mg IV Q4HR PRN PRN Reason: Nausea And Vomiting Ondansetron HCl (Ondansetron 4 Mg/2 Ml Inj) 4 mg IV NOW PRN PRN Reason: Nausea And Vomiting Last Admin: 03/27/23 17:58 Dose: 4 mg Documented By: Admin: 03/27/23 17:38 Dose: 4 mg Documented By: CG Oxycodone HCl (Oxycodone Ir 5 Mg Tablet) 5 mg PO PACUNOW PRN PRN Reason: Mild or moderate pain Last Admin: 03/27/23 17:53 Dose: 5 mg Documented By: CG Vital Signs Vital signs: Vital Signs - 8 hr 03/26/23 19:25 Pulse Rate 72 Respiratory Rate 18 Blood Pressure 130/81 Pulse Oximetry 97 Oxygen Delivery Method Room Air <French Brizuela DO - Last Filed: 03/27/23 00:13> Orders Ordered: Discontinued Medications Acetaminophen (Acetaminophen 325 Mg Tablet) 975 mg PO NOW ONE Stop: 03/27/23 16:44 Last Admin: 03/27/23 18:41 Dose: Not Given Documented By: SB Hydrocodone Bitart/Acetaminophen (Hydrocodone/Acet 5/325 Tablet) 1 tab PO Q4HR PRN PRN Reason: Pain, Moderate (4-6) Celecoxib (Celecoxib 200 Mg Capsule) 200 mg PO BID [facility] Last Admin: 03/28/23 08:34 Dose: Not Given Documented By: Admin: 03/27/23 20:36 Dose: 200 mg Documented By: SR Bupivacaine HCl 30 ml/ (Epinephrine HCl 0.15 mg) 0 ml INJ NOW ONE Stop: 03/27/23 17:09 Last Admin: 03/27/23 17:08 Dose: 20 ml Documented By: PF Hydromorphone HCl (Hydromorphone 1 Mg Inj) 0 mg IV Q5MIN PRN PRN Reason: Pain, Mild (1-3) Hydromorphone HCl (Hydromorphone 1 Mg Inj) 0 mg IV Q5MIN PRN PRN Reason: Pain, Moderate (4-6) Piperacillin Sod/Tazobactam (Sod 3.375 gm/ Sodium Chloride) 100 mls @ 25 mls/hr IV Q8H [facility] Last Admin: 03/27/23 12:40 Dose: 25 mls/hr Documented By: Infusion: 03/27/23 09:30 Dose: Infused Documented By: Admin: 03/27/23 04:37 Dose: 25 mls/hr Documented By: Infusion: 03/27/23 00:51 Dose: Infused Documented By: Infusion: 03/26/23 21:07 Dose: 25 mls/hr Documented By: DKShailesh Admin: 03/26/23 20:50 Dose: 25 mls/hr Documented By: VANESSA Sodium Chloride (Normal Saline 0.9%) 1,000 mls @ 100 mls/hr IV CONT [facility] Last Infusion: 03/27/23 18:32 Dose: 100 mls/hr Documented By: Infusion: 03/27/23 15:45 Dose: 0 mls/hr Documented By: Admin: 03/27/23 09:00 Dose: 100 mls/hr Documented By: Infusion: 03/27/23 09:00 Dose: Infused Documented By: Admin: 03/26/23 22:28 Dose: 100 mls/hr Documented By: SR Lactated Ringer's (Lactated Ringers) 1,000 mls @ 42 mls/hr IV NOW ONE Stop: 03/28/23 15:50 Last Infusion: 03/27/23 17:43 Dose: Infused Documented By: Admin: 03/27/23 16:03 Dose: 42 mls/hr Documented By: TC Acetaminophen (Ofirmev) 1,000 mg in 100 mls @ 400 mls/hr IV NOW ONE Stop: 03/27/23 17:23 Last Admin: 03/27/23 16:50 Dose: 400 mls/hr Documented By: AB Lorazepam (Lorazepam 2 Mg/Ml Inj) 0.25 mg IV NOW PRN PRN Reason: Anxiety Morphine Sulfate (Morphine 2 Mg/Ml Inj) 4 mg IV Q4HR PRN PRN Reason: Pain, Mild (1-3) Last Admin: 03/27/23 02:31 Dose: 4 mg Documented By: Ondansetron HCl (Ondansetron 4 Mg/2 Ml Inj) 4 mg IV NOW PRN PRN Reason: Nausea And Vomiting Ondansetron HCl (Ondansetron 4 Mg/2 Ml Inj) 4 mg IV Q4HR PRN PRN Reason: Nausea And Vomiting Ondansetron HCl (Ondansetron 4 Mg/2 Ml Inj) 4 mg IV NOW PRN PRN Reason: Nausea And Vomiting Last Admin: 03/27/23 17:58 Dose: 4 mg Documented By: Admin: 03/27/23 17:38 Dose: 4 mg Documented By: FLORENCE Oxycodone HCl (Oxycodone Ir 5 Mg Tablet) 5 mg PO PACUNOW PRN PRN Reason: Mild or moderate pain Last Admin: 03/27/23 17:53 Dose: 5 mg Documented By: FLORENCE Vital Signs Vital signs: Vital Signs - 8 hr 03/26/23 19:25 Pulse Rate 72 Respiratory Rate 18 Blood Pressure 130/81 Pulse Oximetry 97 Oxygen Delivery Method Room Air Medical Decision Making <Rona Gandhi MD - Last Filed: 03/30/23 01:05> Lab Data 03/26/23 09:50 03/26/23 09:50 Labs: Lab Results 03/26/23 03/26/23 Range/Units 09:47 09:50 WBC 8.6 (4.5-11.0) X10^3/uL RBC 4.27 (4.0-5.2) X10^6/uL Hgb 13.8 (12.0-16.0) g/dL Hct 40.7 (36-46) % MCV 95.4 (80-100) fL MCH 32.3 (26-34) PG MCHC 33.9 (30-36) % RDW 12.6 (11.6-14.8) % Plt Count 193 (150-400) X10^3/uL Neut % (Auto) 80.0 H (50-75) % Lymph % (Auto) 11.5 L (25-40) % Johnson % (Auto) 7.9 (3-14) % Eos % (Auto) 0.2 L (2-4) % Baso % (Auto) 0.4 (0-2) % Neut # (Auto) 6800 (6615-8666) /uL Lymph # (Auto) 1000 L (4971-9781) /uL Johnson # (Auto) 700 (0-900) /uL Eos # (Auto) 0 (0-450) /uL Baso # (Auto) 0 (0-100) /uL Sodium 134 L (137-145) mmol/L Potassium 3.7 (3.4-5.1) mmol/L Chloride 101 (98-107) mmol/L Carbon Dioxide 26 (22-32) mmol/L BUN 13 (7-17) mg/dL Creatinine 0.61 (0.52-1.04) mg/dL Estimated GFR > 60 (>60) mL/min BUN/Creatinine Ratio 21.3 (6-22) Glucose 117 H (80-110) mg/dL Calcium 9.7 (8.4-10.2) mg/dL Total Bilirubin 0.8 (0.2-1.3) mg/dL AST 44 H (14-36) IU/L ALT 27 (<35) IU/L Alkaline Phosphatase 80 (38-126) U/L Total Protein 8.0 (6.3-8.2) g/dL Albumin 4.5 (3.5-5.0) g/dL Globulin 3.5 (1.7-4.1) g/dL Albumin/Globulin Ratio 1.3 (1.0-2.8) Lipase 133 (23-300) U/L Urine RBC 0-1/hpf (0-5/HPF) Urine WBC None seen (0-5/HPF) Ur Squamous Epith Cells 0-1 /hpf (0-5/HPF) Urine Bacteria Occasional (0-1) (None) Urine Mucus 1+ H (Negative) Ur Culture Indicated? Specimen cultured Urine Dip Bedside Urine Glucose Negative Bedside Urine Bilirubin - Negative Bedside Urine Ketone - Negative Urine Specific [place] 1.015 Bedside Urine Occult Blood ++ Bedside Urine pH 6.0 Bedside Urine Protein +/- 15 Bedside Urine Urobilinogen - Negative Bedside Urine Nitrite - Negative Bedside Urine Leukocytes +/- 15 Esterase Point of care testing: Urine Dip Bedside Urine Glucose Negative Bedside Urine Bilirubin - Negative Bedside Urine Ketone - Negative Urine Specific [place] 1.015 Bedside Urine Occult Blood ++ Bedside Urine pH 6.0 Bedside Urine Protein +/- 15 Bedside Urine Urobilinogen - Negative Bedside Urine Nitrite - Negative Bedside Urine Leukocytes +/- 15 Esterase MDM Narrative Medical decision making narrative: CC: Right lower quadrant abdominal pain times 48 hours. Complicating co-morbidities: Similar complaint a year ago that led to right ovary removal Data collected from: patient Social determinants of health that may influence the patients condition: Lives on [place] Medical records reviewed: Notes from prior workups and gynecologic surgeries reviewed Differential considered: Appendicitis, mesenteric adenitis, zoster or post herpetic neuralgia, pelvic inflammatory disease is far less likely, constipation Exam documented above, pertinent findings include: Moderate tenderness in her right lower quadrant without rebound or guarding. She does have difficulty standing up straight secondary to right lower quadrant pain Lab Test results independently reviewed as above. Pertinent findings: CBC is unremarkable Chemistries without Significant abnormalities Lipase is unremarkable Urine does not suggest infection or stone Independently reviewed EKG: Sinus rhythm with short UT at a rate of 73. Meeting criteria for LVH. Imaging studies independently reviewed: Consultations: Treatments: Patient declines any pain medication at the time of my exam Re-evaluations: Discussion: <French Brizuela, DO - Last Filed: 03/27/23 00:13> Lab Data Lab results reviewed: Yes I reviewed the patient's lab results. Labs: Lab Results 03/26/23 03/26/23 Range/Units 09:47 09:50 WBC 8.6 (4.5-11.0) X10^3/uL RBC 4.27 (4.0-5.2) X10^6/uL Hgb 13.8 (12.0-16.0) g/dL Hct 40.7 (36-46) % MCV 95.4 (80-100) fL MCH 32.3 (26-34) PG MCHC 33.9 (30-36) % RDW 12.6 (11.6-14.8) % Plt Count 193 (150-400) X10^3/uL Neut % (Auto) 80.0 H (50-75) % Lymph % (Auto) 11.5 L (25-40) % Johnson % (Auto) 7.9 (3-14) % Eos % (Auto) 0.2 L (2-4) % Baso % (Auto) 0.4 (0-2) % Neut # (Auto) 6800 (4217-0303) /uL Lymph # (Auto) 1000 L (6777-0922) /uL Johnson # (Auto) 700 (0-900) /uL Eos # (Auto) 0 (0-450) /uL Baso # (Auto) 0 (0-100) /uL Sodium 134 L (137-145) mmol/L Potassium 3.7 (3.4-5.1) mmol/L Chloride 101 (98-107) mmol/L Carbon Dioxide 26 (22-32) mmol/L BUN 13 (7-17) mg/dL Creatinine 0.61 (0.52-1.04) mg/dL Estimated GFR > 60 (>60) mL/min BUN/Creatinine Ratio 21.3 (6-22) Glucose 117 H (80-110) mg/dL Calcium 9.7 (8.4-10.2) mg/dL Total Bilirubin 0.8 (0.2-1.3) mg/dL AST 44 H (14-36) IU/L ALT 27 (<35) IU/L Alkaline Phosphatase 80 (38-126) U/L Total Protein 8.0 (6.3-8.2) g/dL Albumin 4.5 (3.5-5.0) g/dL Globulin 3.5 (1.7-4.1) g/dL Albumin/Globulin Ratio 1.3 (1.0-2.8) Lipase 133 (23-300) U/L Urine RBC 0-1/hpf (0-5/HPF) Urine WBC None seen (0-5/HPF) Ur Squamous Epith Cells 0-1 /hpf (0-5/HPF) Urine Bacteria Occasional (0-1) (None) Urine Mucus 1+ H (Negative) Ur Culture Indicated? Specimen cultured Urine Dip Bedside Urine Glucose Negative Bedside Urine Bilirubin - Negative Bedside Urine Ketone - Negative Urine Specific [place] 1.015 Bedside Urine Occult Blood ++ Bedside Urine pH 6.0 Bedside Urine Protein +/- 15 Bedside Urine Urobilinogen - Negative Bedside Urine Nitrite - Negative Bedside Urine Leukocytes +/- 15 Esterase Point of care testing: Urine Dip Bedside Urine Glucose Negative Bedside Urine Bilirubin - Negative Bedside Urine Ketone - Negative Urine Specific [place] 1.015 Bedside Urine Occult Blood ++ Bedside Urine pH 6.0 Bedside Urine Protein +/- 15 Bedside Urine Urobilinogen - Negative Bedside Urine Nitrite - Negative Bedside Urine Leukocytes +/- [address] scan - abdomen/pelvis: Radiologist's Impression: PROCEDURE: CT ABDOMEN PELVIS W CON INDICATIONS: RLQ X 48hrs TECHNIQUE: After the administration of intravenous contrast, axial sections acquired from the lung bases to the pubic symphysis. Coronal and sagittal reformats were performed. For radiation dose reduction, the following was used: automated exposure control, adjustment of mA and/or kV according to patient size. COMPARISON: [facility], CT, CT ABDOMEN PELVIS W CON, 05/11/2022, 10:56. FINDINGS: Image quality: Excellent. Lung bases: Unremarkable. Heart: No significant findings. ABDOMEN: Liver: Subcentimeter hepatic hypodensities (2/14) are too small to characterize, possible cysts versus hemangiomas. Gallbladder: Unremarkable. Biliary ducts: Unremarkable. Pancreas: Unremarkable. Spleen: Unremarkable. Adrenal Glands: Unremarkable. Kidneys and Ureters: Unremarkable. Stomach and Bowel: No evidence of small-bowel obstruction. There is an ill- defined heterogeneously enhancing area in the right lower quadrant adjacent to the cecum that has a suggestion of a tubular formation measuring up to 1.6 cm in caliber, for example on sagittal series 5, image 47 and axial series 2, image 55. Finding may represent the appendix, however tissue differentiation is difficult due to lack of visceral fat and oral contrast. Peritoneum: No abnormal intraperitoneal fluid. No free air. Ventral Wall: No hernias. Abdominal Nodes: No retroperitoneal or mesenteric adenopathy by size criteria. Vessels: Aorta and inferior vena cava are normal in size. PELVIS: Pelvic Organs: Calcified uterine fibroids. Bladder: Unremarkable. Pelvic Nodes: No enlarged lymph nodes. Miscellaneous: No hernias are seen. Bones: No acute or suspicious osseous abnormality. IMPRESSION: Possible dilated and enhancing appendix in the right lower quadrant suspicious for acute appendicitis MDM Narrative Medical decision making narrative: CC: Right lower quadrant abdominal pain times 48 hours. Complicating co-morbidities: Similar complaint a year ago that led to right ovary removal Data collected from: patient Social determinants of health that may influence the patients condition: Lives on [place] Medical records reviewed: Notes from prior workups and gynecologic surgeries reviewed Differential considered: Appendicitis, mesenteric adenitis, zoster or post herpetic neuralgia, pelvic inflammatory disease is far less likely, constipation Exam documented above, pertinent findings include: Moderate tenderness in her right lower quadrant without rebound or guarding. She does have difficulty standing up straight secondary to right lower quadrant pain Lab Test results independently reviewed as above. Pertinent findings: CBC is unremarkable Chemistries without Significant abnormalities Lipase is unremarkable Urine does not suggest infection or stone Independently reviewed EKG: Sinus rhythm with short UT at a rate of 73. Meeting criteria for LVH. Imaging studies independently reviewed: Consultations: Treatments: Patient declines any pain medication at the time of my exam Re-evaluations: Discussion: Dr brizuela: Received turned over. Review patient's history and physical exam. Reviewed workup up to this point. CT scan concerning for acute appendicitis. This does fit her exam as well. I did discuss the case with Dr. Ji on-call with General surgery. Who will admit for further evaluation and treatment. Discussed the need for admission with the patient. She expressed understanding and agreement. Discharge Plan Departure Patient Disposition: Admitted As Inpatient Clinical Impression: Acute appendicitis Admit Date/Time: 03/26/23 20:38 Admit Provider: Kirk Ji ED Sign-out <Rona Gandhi MD - Last Filed: 03/30/23 01:05> [facility] I was immediately available in the department for consultation throughout this patient's visit. Rona Gandhi MD
--- NOTE | 2023-03-26 17:33 | DI.CT.S_ITS ---
PROCEDURE: CT ABDOMEN PELVIS W CON INDICATIONS: RLQ X 48hrs TECHNIQUE: After the administration of intravenous contrast, axial sections acquired from the lung bases to the pubic symphysis. Coronal and sagittal reformats were performed. For radiation dose reduction, the following was used: automated exposure control, adjustment of mA and/or kV according to patient size. COMPARISON: [facility], CT, CT ABDOMEN PELVIS W CON, 05/11/2022, 10:56. FINDINGS: Image quality: Excellent. Lung bases: Unremarkable. Heart: No significant findings. ABDOMEN: Liver: Subcentimeter hepatic hypodensities (2/14) are too small to characterize, possible cysts versus hemangiomas. Gallbladder: Unremarkable. Biliary ducts: Unremarkable. Pancreas: Unremarkable. Spleen: Unremarkable. Adrenal Glands: Unremarkable. Kidneys and Ureters: Unremarkable. Stomach and Bowel: No evidence of small-bowel obstruction. There is an ill-defined heterogeneously enhancing area in the right lower quadrant adjacent to the cecum that has a suggestion of a tubular formation measuring up to 1.6 cm in caliber, for example on sagittal series 5, image 47 and axial series 2, image 55. Finding may represent the appendix, however tissue differentiation is difficult due to lack of visceral fat and oral contrast. Peritoneum: No abnormal intraperitoneal fluid. No free air. Ventral Wall: No hernias. Abdominal Nodes: No retroperitoneal or mesenteric adenopathy by size criteria. Vessels: Aorta and inferior vena cava are normal in size. PELVIS: Pelvic Organs: Calcified uterine fibroids. Bladder: Unremarkable. Pelvic Nodes: No enlarged lymph nodes. Miscellaneous: No hernias are seen. Bones: No acute or suspicious osseous abnormality. IMPRESSION: Possible dilated and enhancing appendix in the right lower quadrant suspicious for acute appendicitis. Dictated by: Betty Chaudhry M.D. on 03/26/2023 at 20:02 Approved by: Betty Chaudhry M.D. on 03/26/2023 at 20:15
[2023-03-26] MEDS: PIPERACILLIN/TAZO 3.375 GM in SODIUM CHLORIDE 0.9% 100 ML IV (20:50)
[2023-03-26] MEDS: SODIUM CHLORIDE 0.9% 1,000 ML 100 ML IV (22:28)
[2023-03-27] VITALS (15 sets, daily range): BP systolic 117–153; BP diastolic 71–84; PULSE 50–81; RESP 11–18; TEMP 36.2–37.3; O2SAT 96–100; BMI 19.0
--- NOTE | 2023-03-27 | PATH_ITS ---
[facility] Accession Number: [id number] No. of containers..01 Tissue . 01 Material submitted: . appendix - APPENDIX . 01 Diagnosis: Appendix, Appendectomy: Features most consistent with focal, subacute appendicitis. Negative for dysplasia and malignancy. MRV 04/04/2023 1544 Local . 01 Electronically signed: . Toma Tsang MD, Pathologist NPI- [id number] . 01 Gross description: . The specimen is received in formalin labeled with the patient's name, , and appendix, consists of a thornton vermiform appendix measuring 3.7 cm in length by 0.7 cm in diameter with thornton, smooth serosa and a small amount of mesoappendix. The margin is inked blue. Sectioning reveals a patent lumen averaging 0.3 cm in diameter and containing red-brown semi-solid material. The hernández average 0.3 cm thick with no perforation or lesions identified. Reel Repairer sections to include one-half of the bisected distal tip, cross sections, and margins are submitted in cassette A1. ([id number]) /MRV 03/28/2023 1851 Local . 01 Pathologist provided ICD-10: K36 . 01 CPT . 395250 Specimen Comment: A courtesy copy of this report has been sent to [phone] Performed at: 01 [facility] [address] [place] [address] [id number] MD Rosendo Hope MD Phone: [phone]
[2023-03-27] MEDS: MORPHINE 2 MG/ML INJ 4 MG IV (02:31)
[2023-03-27] MEDS: PIPERACILLIN/TAZO 3.375 GM in SODIUM CHLORIDE 0.9% 100 ML IV ×2 (04:37→12:40)
[2023-03-27] MEDS: SODIUM CHLORIDE 0.9% 1,000 ML 100 ML IV (09:00)
--- NOTE | 2023-03-27 10:53 | PC.NURSE ---
Day shift: At 1040am, patient's SO came to find this RN to ask for help. He stated that patient was ambulating in her room when her legs buckled and she slid to the floor. Went in to assess patient. Patient sitting on the ground. A&Ox4. Patient denies losing consciousness, denies hitting her head or any pain. Vital signs assessed - within normal limits (see chart). Patient denies dizziness. RN Kim and I helped patient up to stand, patient continues to deny dizziness or any new symptoms. She stated I don't understand. My legs just buckled. Patient now resting comfortably in bed. Bed alarm on. Asked patient to not get up without calling first. Prior to 1040 this AM, patient was completely independent in the room and ambulated around unit independently x 1 hour. Notified Poncho Figueroa, charge nurse. Will continue to monitor.
--- NOTE | 2023-03-27 11:25 | CM.DANOTE ---
Patient is a 62 yo female who was admitted OBS Status on 03/26/23 for Abd Pain. Pt has [employer] for insurance and her PCP is Bambi Patel. EMR was reviewed. Per MD, pt with hx of ovarian cyst and removal of one ovary and admitted now with acute appendicitis. Awaiting Surgeon Consult to confirm lap appe this evening at 1645. SW met bedside with pt and explained role and she confirms she lives on [address] ([facility] does go to [place]) and lives alone and is very active and independent and typically rides her bike to and from the [facility] on [address] and leaves her car at the [facility] as she works in [employer] a few times a week. Pt's Sig Other Kendall then joined bedside and he lives on [facility] in his own home but they visit frequently and he is available for assist if needed. Pt has been ambulating the unit independently and does not use DME and has no hx of HH or SNF. Pt does not anticipate any needs at d/c at this time and Kendall confirms he will help as needed. Plan: SW to follow closely for likely Lap Appe this evening and then likely discharge by tomorrow pending surgery results. SW to confirm safe plan of home and any further identified discharge planning needs. ART Maria Discharge Planning/Care Management CM Discharge Assessment Start: 03/27/23 11:22 Freq: Status: Active Protocol: Document 03/27/23 11:24 BF (Rec: 03/27/23 11:25 BF [id number]) Discharge Planning Assessment Assigned [employer] ART Sutton DPOA/Assigned Designee Name informally life partner Kendall Contact Information [phone] Advance Directives? Yes: POLST Advance Directives on File No History Provided By Patient,Significant Other, Medical Record Has Patient been admitted in last 30 No days? Prior Living Arrangements House Household Members none Type of transporation used prior to Drives own vehicle admit Comment Drives her car and also takes her bicylce many places Independent with ADL's Yes Is patient alert and oriented? Yes Caregiver for Another No Barriers to Discharge No Discharge Plan Home Transportation Arrangement Sig Other Kendall bedside and can transport Referrals Initiated None needed Additional Comment Pending likely Lap Appe Whiteboard Updated in Patient Room with Yes name and ext. # of [employer] Review Status In Process Please Provide Date Initial DC 03/27/23 Assessment Was Performed Next Review Type Continued Stay Review
[2023-03-27] MEDS: LACTATED RINGERS 1,000 ML 42 ML IV (16:03)
--- NOTE | 2023-03-27 16:20 | P.HP_ITS ---
History of Present Illness History of Present Illness Date Patient Seen: 03/27/23 Time Patient Seen: 16:20 Chief complaint: pain in lower right abd t-2 Narrative: RLQ pain for 48hrs with CT findings for early appy. She has had lap right ovarian removal in July for RLQ pain as well PFSH Medical History Hypertension Surgical History History of right oophorectomy Family History Father History of heart disease Circulatory disease Mother Neurologic disorder Grandfather History of heart disease Grandmother Stroke Grandfather Cancer Grandmother Cancer Social History household members: none Smoking Status: Never smoker alcohol intake: never Meds Home Medications and Allergies Home Medications Medication Instructions Recorded Confirmed Type No Known Home Medications 08/15/22 03/26/23 History Allergies Allergy/AdvReac Type Severity Reaction Status Date / Time No Known Drug Allergies Allergy Verified 03/26/23 09:54 Review of Systems Review of Systems ROS: Yes All systems reviewed with the patient and are negative except as otherwise documented Exam Vital Signs (past 8 hours): - 03/27/23 09:14 03/27/23 10:45 03/27/23 13:33 Temperature 98.7 F 99.1 F Pulse Rate 76 81 Respiratory Rate 16 16 16 Blood Pressure 135/78 153/84 H Pulse Oximetry 100 100 99 Oxygen Delivery Method Oxygen Flow Rate 0 03/27/23 15:57 Temperature 99.2 F Pulse Rate 77 Respiratory Rate 18 Blood Pressure 138/78 Pulse Oximetry 100 Oxygen Delivery Method Room Air Oxygen Flow Rate Oxygen Delivery Method Room Air Oxygen Flow Rate 0 Narrative Exam Narrative: Thin, comfortable works as assembly riveter. Const General: cooperative, healthy appearing and comfortable Nutritional Appearance: thin HENMT Head: normocephalic and atraumatic Ears: hearing grossly normal bilaterally Face and sinus: normal facial exam Eyes General: appearance normal, both eyes and all related structures Neck Neck: full ROM and supple Chest Chest: normal inspection of the chest Resp Effort & Inspection: normal respiratory effort and able to speak in complete sentences Cardio Rate: regular rate Rhythm: regular rhythm GI Palpation: soft Skin General: elasticity normal and turgor normal Neuro General: patient alert, patient awake and patient oriented x3 Cognition: normal cognition Psych Appearance: grossly normal Mental Status: mental status grossly normal Affect: normal affect Judgment: judgment good Objective Labs 03/26/23 09:50 03/26/23 09:50 Assessment & Plan Assessment & Plan narrative: appendicitis Plan: lap appy Time Spent With Patient Time with patient: less than 30 minutes
[2023-03-27] MEDS: ACETAMINOPHEN IV 1,000 MG/100 ML VIAL 400 MG IV (16:50)
--- NOTE | 2023-03-27 17:01 | SUR.OPER ---
Supine on padded OR bed, head on pillow, safety belt at thigh, left arm padded and tucked at side. Right arm secured on padded arm board <90 degrees abduction. Legs uncrossed. Padded footboard in place. Tape over blanket to secure lower legs.
[2023-03-27] MEDS: BUPIVACAINE 0.25% (PF) 30 ML, EPINEPHrine 0.15 MG INJ (17:08)
--- NOTE | 2023-03-27 17:27 | PM.OP.1 ---
Operative Date/Time/Diagnoses Date of procedure: 03/27/23 Time of procedure: 17:27 Pre-op diagnosis: Acute appendicitis Post-op diagnosis: same Procedure & Clinicians Procedure: Laparoscopic appendectomy Same procedure as scheduled: Yes Indications: Acute appendicitis Surgeon: Geni Baker Click Yes if Unassisted: Yes Anesthesia Type: General Operative Notes Findings: Stage I acute appendicitis Closure Type: primary Specimen(s): other (Appendix) Estimated Blood Loss (mL): 2 Procedure in detail: Preop diagnosis: Acute appendicitis Postop diagnosis: Same Operative procedure: Laparoscopic appendectomy Surgeon: Nancy Baker MD Findings: Stage I acute appendicitis inflammatory Procedure: Patient placed in a supine position. Prepped and draped in sterile fashion to expose her abdomen. Infraumbilical port site was placed using open technique a 12 mm port. Insufflation began all other ports placed under direct vision including a 5 mm port in the suprapubic area and a 5 mm port in the left lateral abdomen. Appendix was identified lifted cephalad for exposure. Appendiceal mesentery was taken down with electrocautery and excellent hemostasis. A SUNNI stapling device was used to amputate the appendix at its base. The staple line was healthy in nature and no bleeding. I then placed the appendix into an Endo-Catch bag and pulled it through the infraumbilical port site intact without spillage. Survey of the abdomen prior to removal of all ports. And then closure. Closure consisted of interrupted 0 Vicryl for fascial closure. Skin was closed with interrupted 4-0 Vicryl. Steri-Strips sterile dressings were placed. Patient was awakened, extubated, taken to recovery room in stable condition. Needle, instrument, sponge counts were correct. Blood loss: 2 mL Specimen: Appendix Complications: none Post-operative Condition: stable Disposition: PACU
[2023-03-27] MEDS: ONDANSETRON 4 MG/2 ML INJ IV ×2 (17:38→17:58)
--- NOTE | 2023-03-27 17:48 | SUR.PHASEI ---
Patient resting comfortably; in no acute distress; c/o discomfort but denies need for pain medication at this time. Patient taking sips of water without difficulty. VSS.
[2023-03-27] MEDS: OXYCODONE IR 5 MG TABLET PO (17:53)
[2023-03-27] MEDS: CELECOXIB 200 MG CAPSULE PO (20:36)
[2023-03-28 05:59] VITALS: BP 117/73; PULSE 67; RESP 19; TEMP 36.5; O2SAT 97
[2023-03-28 08:59] VITALS: BP 116/68; PULSE 76; RESP 19; TEMP 36.4; O2SAT 98
--- NOTE | 2023-03-28 11:34 | PC.NURSE ---
Patient is A&OX4, VSS, afebrile.She reports discomfort to abdomen is tolerable at 2/10 and denies wanting any pain medications. Incisions to abdomen c/d/i. She denies n/v, and is able to tolerate breakfast. BS +x4 hypoactive. She is cleared for discharge home today per GI doctor. She verbalizes understanding of site care, activity limitations, medications, s/sx of infection as well as follow up appointment. Patient is escorted via w/ch to private vehicle for discharge home this morning with her friend and all of her personal belongings.
== END 2023-03-28 09:38 | disposition home or self-care (01) ==
LOC: ED 20:36 → AC 21:07
PROVIDERS: Emergency Medicine; Surgery; Admitting Provider Surgery; Emergency Provider Emergency Medicine; PCP Family Medicine; Referring Provider Emergency Medicine; Visit Provider Surgery
PROC: 0DTJ4ZZ Resection of Appendix, Percutaneous Endoscopic Approach (ICD-10-PCS; CPT 44970; principal; 2023-03-27 18:15)
DX: K35.80 Unspecified acute appendicitis (principal)
CPT/HCPCS: 44970; 36415; 74177; 80053; 81003; 81015; 83690; 85025; 87086; 93005; 93010; 96365; 96366; 96375; 99221; 99283; 99284; G0378; J0131; J0171; J1100; J2250; J2270; J2405; J2543; J2704; J3010; Q9967